=== PATIENT | female | born 1990 | race Hispanic/Latino ===

== ENCOUNTER 2024-03-11 23:49 | Day surgery (SDC) | payer OTHER ==
[2024-03-12 00:03] VITALS: BMI 33.3
[2024-03-12] MEDS ORDERED: hydrALAZINE 20 MG/ML VIAL SLOW IVP PRN (01:14)
== END 2024-03-12 02:02 | disposition home or self-care (01) ==
LOC: CSHLD/OP 23:49
PROVIDERS: ATTEND Family Medicine
DX: O47.1 False labor at or after 37 completed weeks of gestation (principal); O99.283 Endocrine, nutritional and metabolic diseases complicating pregnancy, third trimester; E03.9 Hypothyroidism, unspecified; Z3A.39 39 weeks gestation of pregnancy; Z79.890 Hormone replacement therapy; Z79.899 Other long term (current) drug therapy
CPT/HCPCS: 99283

== ENCOUNTER 2024-03-13 09:30 | Inpatient (IN) | payer OTHER ==
[2024-03-13 10:03] VITALS: BMI 33.5
[2024-03-13] MEDS ORDERED: hydrALAZINE 20 MG/ML VIAL SLOW IVP PRN ×2 (10:53→15:14)
[2024-03-13 11:28] LABS: Fetal Membranes Rupture RUPTURE DETECTED (No Rupture)
[2024-03-13] MEDS ORDERED: Promethazine HCl 25 MG/ML VIAL IM PRN ×2 (12:20→15:14)
[2024-03-13] MEDS ORDERED: Ondansetron PF 4 MG/2 ML Vial IVP PRN ×2 (12:20→15:14)
[2024-03-13] MEDS ORDERED: Lidocaine 1% (PF) 30 ML VIAL SC PRN (12:20)
[2024-03-13] MEDS ORDERED: Methylergonovine 0.2 MG/ML VIAL IM PRN ×2 (12:22→15:14)
[2024-03-13] MEDS ORDERED: Misoprostol 200 MCG TAB PR PRN (12:22)
[2024-03-13] MEDS ORDERED: Tranexamic Acid 1,000 MG/10 ML VIAL IVP PRN (12:22)
[2024-03-13] MEDS ORDERED: Diphenoxylate HCl/Atropine Tablet PO PRN (12:22)
[2024-03-13] MEDS ORDERED: Carboprost 250 MCG/ML AMP IM PRN (12:22)
[2024-03-13] MEDS ORDERED: Acetaminophen 500 MG TAB PO PRN (12:22)
[2024-03-13] MEDS ORDERED: Butorphanol Tartrate 1 MG/ML VIAL SLOW IVP PRN (12:22)
[2024-03-13] MEDS ORDERED: Lactated Ringer's 1,000 ML IV SCH (12:30)
[2024-03-13] MEDS ORDERED: Oxytocin 30 units/NS 500 ML 500 ML IV SCH ×4 (12:30→15:14)
[2024-03-13] MEDS ORDERED: Misoprostol 100 MCG TAB VAG SCH ×2 (12:30)
[2024-03-13] MEDS: fentaNYL 50 mcg/mL 1 mL Vial SLOW IVP PRN (12:41)
[2024-03-13 13:05] LABS: Hemoglobin 14.6 g/dL (12.0-15.5); Mean Corpuscular Hemoglobin 30.4 pg (27.0-33.0); Mean Corpuscular Volume 89.4 fl (81.6-98.3); Mean Platelet Volume 12.6 fl (7.4-10.4); Platelet Count 169 10x3/uL (150-450); Red Blood Cell (RBC) Count 4.81 10x6/uL (3.90-5.03); White Blood Cell (WBC) Count 11.2 10x3/uL (3.5-10.5)
[2024-03-13 13:59] LABS: Syphilis Antibody Nonreactive (Nonreactive); Syphilis Antibody Index 0.06 S/CO (<1.00 Non-Reactive)
[2024-03-13 14:00] LABS: HBsAg Index 0.33 S/CO (0-0.99); Hep B Surf Ag - L&D Non-Reactive S/CO (NonReactive)
[2024-03-13] MEDS: Ibuprofen 800 MG TAB PO PRN (14:33)
[2024-03-13] MEDS ORDERED: Milk Of Magnesia 30 ML UDCUP PO PRN (15:14)
[2024-03-13] MEDS ORDERED: diphenhydrAMINE 25 MG CAP PO PRN (15:14)
[2024-03-13] MEDS ORDERED: Lanolin Ointment 7 GM TUBE TOP PRN (15:14)
[2024-03-13] MEDS ORDERED: Bisacodyl 10 MG SUPP PR PRN (15:14)
[2024-03-13] MEDS ORDERED: Misoprostol 200 MCG TAB VAG PRN (15:14)
[2024-03-13] MEDS: Acetaminophen 500 MG TAB PO SCH (17:03)
[2024-03-13] MEDS: Boostrix 0.5 ML (Tdap) VIAL (>/=7 yrs of age) IM ONE (17:03)
[2024-03-13] MEDS: Ferrous Sulfate 325 MG TAB PO SCH (17:05)
[2024-03-13] MEDS: Ibuprofen 800 MG TAB PO SCH (21:20)
[2024-03-13] MEDS: Docusate 100 MG CAP PO SCH (21:20)
[2024-03-14] MEDS: Prenatal Vitamin 1 TAB PO SCH (08:51)
[2024-03-14] MEDS: Acetaminophen 500 MG TAB PO SCH (11:22)
[2024-03-14 13:15] VITALS: BP 125/60; TEMP 98.4
== END 2024-03-14 18:40 | disposition home or self-care (01) | DRG 806 ==
LOC: CSHLD/OP 09:30 → CSHLD 11:37 → CSHPED 16:30
PROVIDERS: ADMIT Family Medicine; ATTEND Family Medicine
PROC: 10E0XZZ Delivery of Products of Conception, External Approach (ICD-10-PCS; principal; 2024-03-13)
PROC: 4A1HXCZ Monitoring of Products of Conception, Cardiac Rate, External Approach (ICD-10-PCS; 2024-03-13)
DX: O75.3 Other infection during labor (principal); O23.593 Infection of other part of genital tract in pregnancy, third trimester; Z37.0 Single live birth; B96.89 Other specified bacterial agents as the cause of diseases classified elsewhere; Z3A.39 39 weeks gestation of pregnancy; O99.284 Endocrine, nutritional and metabolic diseases complicating childbirth; E03.9 Hypothyroidism, unspecified; O99.214 Obesity complicating childbirth; E66.9 Obesity, unspecified
CPT/HCPCS: 84112; 85027; 86780; 86850; 86900; 86901; 87340; 87480; 87510; 87660; J3010

== ENCOUNTER 2024-07-30 23:31 | Emergency (ER) | payer OTHER ==
[2024-07-30] MEDS ORDERED: diphenhydrAMINE 50 MG/ML VIAL ONE (23:51)
[2024-07-30] MEDS ORDERED: Metoclopramide HCl 10 MG (2 mL) VIAL ONE (23:51)
== END 2024-07-31 01:06 | disposition home or self-care (01) ==
LOC: CSHERS 23:31
DX: R51.9 Headache, unspecified (principal); I10 Essential (primary) hypertension; E03.9 Hypothyroidism, unspecified; Z79.890 Hormone replacement therapy
CPT/HCPCS: 96361; 96374; 96375; J1200; J2765

== ENCOUNTER 2024-10-07 17:20 | Emergency (ER) | payer OTHER | END 2024-10-07 19:03 | disposition home or self-care (01) | LOC: CSHERS 17:20 | DX: J01.90 Acute sinusitis, unspecified (principal) | CPT/HCPCS: 99283 ==